=== PATIENT | male | born 1970 | race African-American/Black ===

== ENCOUNTER 2020-01-30 17:42 | Inpatient (IN) | payer OTHER ==
--- NOTE | 2020-01-30 18:37 | HP ---
COWS - Scale Resting Pulse: 0= [place] 80 or Below Sweatin= Chills/Flushing Restless Observation: 1= Difficult to Sit Still Pupil Size: 1= Pupils >than Normal Bone or Joint Aches: 2= Severe Diffuse Aches Runny Nose/ Eye Tearin= Runny Nose/Eyes GI Upset > 30mins: 2= Nausea/Diarrhea Tremor Observation: 1= Tremor [place], Not Seen Yawning Observation: 1= 1-2x During Session Anxiety or Irritability: 1=Feels Anxious/Irritable Goose Flesh Skin: 3=Piloerection COWS Score: 15 CIWA Score Nausea/Vomitin Muscle Tremors: 2 Anxiety: 1-Mildly Anxious Agitation: 0-Normal Activity Paroxysmal Sweats: 2 Orientation: 2-Disoriented Date<2 days Tacttile Disturbances: 1-Very Mild Itch/Numbness Auditory Disturbances: 1-Very Mild Visual Disturbances: 1-Very Mild Sensitivity Headache: 1-Very Mild CIWA-Ar Total Score: 13 - Admission Criteria OASAS Guidelines: Admission for Medically Managed Detox: Requires at least one of the followin. CIWA greater than 12 2. Seizures within the past 24 hours 3. Delirium tremens within the past 24 hours 4. Hallucinations within the past 24 hours 5. Acute intervention needed for co occurring medical disorder 6. Acute intervention needed for co occurring psychiatric disorder 7. Severe withdrawal that cannot be handled at a lower level of care (continued vomiting, continued diarrhea, abnormal vital signs) requiring intravenous medication and/or fluids 8. Admitting History and Physical - Smoking History Smoking history: Current every day smoker Have you smoked in the past 12 months: Yes Aproximately how many cigarettes per day: 2 Admission [facility] Chief Complaint: WITHDRAWAL SYMPTOMS Allergies/Adverse Reactions: Allergies Allergy/AdvReac Type Severity Reaction Status Date / Time No Known Allergies Allergy Verified 11/24/15 16:54 History of Present Illness: 49 Y.O. MAN WITH AN EXTENSIVE HISTORY OF ALCOHOL, COCAINE AND HEROIN DEPENDENCE IS HERE SEEKING DETOX SERVICES. HE REPORTS HIS LAST ADMISSION TO DETOX WAS 2 MONTHS AGO AT [facility] BUT HE LEFT A. LONGEST PERIOD OF ALCOHOL AND DRUG ABSTINENCE HAS BEEN 2 YEARS. Exam Limitations: No Limitations - Ebola screening Have you traveled outside of the country in the last 21 days: No Have you been sick,other than usual withdrawal symptoms: No - Review of Systems Constitutional: Chills, Loss of Appetite, Unintentional Wgt. Loss EENT: reports: Blurred Vision, Tearing, Nose Congestion Respiratory: reports: Cough Cardiac: reports: No Symptoms Reported GI: reports: Diarrhea, Poor Appetite, Abdominal cramping : reports: No Symptoms Reported Musculoskeletal: reports: Back Pain, Joint Pain Integumentary: reports: No Symptoms Reported Neuro: reports: Tingling (B/L UPE) Endocrine: reports: No Symptoms Reported Hematology: reports: No Symptoms Reported Psychiatric: reports: Mood/Affect Appropiate Other Systems: Reviewed and Negative Patient History - Patient Medical History Hx Anemia: No Hx Asthma: Yes Hx Chronic Obstructive Pulmonary Disease (COPD): No Hx Cancer: No Hx Cardiac Disorders: No Hx Congestive Heart Failure: No Hx Hypertension: Yes Hx Hypercholesterolemia: No Hx Pacemaker: No HX Cerebrovascular Accident: No Hx Seizures: No Hx Dementia: No Hx Diabetes: No Hx Gastrointestinal Disorders: No Hx Liver Disease: No Hx Genitourinary Disorders: No Hx Sexually Transmitted Disorders: No Hx Renal Disease (ESRD): No Hx Thyroid Disease: No Hx Human Immunodeficiency Virus (HIV): No (Negative-reports he was tested 1 week ago) Hx Hepatitis C: No Hx Depression: No (Denies ) Hx Suicide Attempt: No Hx Bipolar Disorder: No Hx Schizophrenia: No - Patient Surgical History Past Surgical History: Yes Hx Orthopedic Surgery: Yes (r internal fixation/hip replacement 2013) - PPD History Previous Implant?: Yes Documented Results: Negative w/proof Implanted On Prior [facility] Admission?: Yes Date: 11/26/15 Results: 0 PPD to be Administered?: Yes - Reproductive History Patient is a Female of Child Bearing Age (11 -55 yrs old): No - Smoking Cessation Smoking history: Current every day smoker Have you smoked in the past 12 months: Yes Aproximately how many cigarettes per day: 4 Hx Chewing Tobacco Use: No Initiated information on smoking cessation: Yes 'Breaking Loose' booklet given: 01/30/20 - Substance & Tx. History Hx Alcohol Use: Yes Hx Substance Use: Yes Substance Use Type: Alcohol, Cocaine, Heroin Hx Substance Use Treatment: Yes (Detox: 2 months ago at [facility] ) - Substances abused Heroin Substance route: Inhalation Frequency: Daily Amount used: 10 bags Age of first use: 29 Date of last use: 01/30/20 Cocaine Substance route: Smoking Frequency: 3-6 times per week Amount used: 3 bags Age of first use: 19 Date of last use: 01/30/20 Alcohol Substance route: Oral Frequency: Daily Amount used: 2-3 cans of beer Age of first use: 19 Date of last use: 01/30/20 Admission Physical Exam [facility] - Physical General Appearance: Yes: Tremorous, Sweating HEENTM: Yes: Hearing grossly Normal, Normocephalic, Normal Voice Respiratory: Yes: Chest Non-Tender, Lungs Clear, Normal Breath Sounds, No Respiratory Distress, No Accessory Muscle Use Neck: Yes: No masses,lesions,Nodules Breast: Yes: Breast Exam Deferred Cardiology: Yes: Regular Rhythm, Regular Rate Abdominal: Yes: Normal Bowel Sounds, Non Tender Genitourinary: Yes: Other (No complaints reported) Back: Yes: Normal Inspection Musculoskeletal: Yes: full range of Motion, Gait Steady Extremities: Yes: Normal Inspection, Normal Range of Motion, Non-Tender Neurological: Yes: Alert, Normal Mood/Affect, Normal Response Integumentary: Yes: Normal Color, Dry, Warm Lymphatic: Yes: Within Normal Limits - Diagnostic (1) Alcohol dependence with withdrawal, uncomplicated Current Visit: Yes Status: Chronic (2) Opioid dependence, uncomplicated Current Visit: Yes Status: Chronic (3) Asthma Current Visit: Yes Status: Chronic (4) Hypertension Current Visit: Yes Status: Chronic Qualifiers: Hypertension type: essential hypertension Qualified Code(s): I10 - Essential (primary) hypertension (5) Nicotine dependence Current Visit: Yes Status: Chronic Qualifiers: Nicotine product type: cigarettes Substance use status: uncomplicated Qualified Code(s): F17.210 - Nicotine dependence, cigarettes, uncomplicated (6) Cocaine dependence Current Visit: Yes Status: Chronic Cleared for Admission [facility] - Detox or Rehab [facility] Level of Care: Medically Managed Detox Regimen/Protocol: Methadone/Librium Claeared for Rehab Admission: No Breathalyzer - Breathalyzer Breathalyzer: 0.067 Urine Drug Screen - Test Device Lot number: [id number] Expiration date: 10/25/21 - Control Is test valid?: Yes - Results Drug screen NEGATIVE: No Urine drug screen results: KARLO-Cocaine, MOP-Opiates Inpatient Rehab Admission - Rehab Decision to Admit Inpatient rehab admission?: No
[2020-01-30] MEDS ORDERED: BISMUTH SUBSALICYLATE 524 MG/30 ML UD PO PRN (18:41)
[2020-01-30] MEDS ORDERED: MENTHOL/PHENOL 1 EACH UD MM PRN (18:41)
[2020-01-30] MEDS ORDERED: IBUPROFEN 400 MG TABLET (FP) PO PRN (18:41)
[2020-01-30] MEDS ORDERED: NICOTINE POLACRILEX 2 MG GUM BUC PRN (18:41)
[2020-01-30] MEDS ORDERED: MAGNESIUM HYDROX 2400MG/30ML ORAL SUSPENSION 30 ML CUP PO PRN (18:41)
[2020-01-30] MEDS ORDERED: chlordiazePOXIDE HCL 10 MG CAPSULE PO PRN (18:41)
[2020-01-30] MEDS ORDERED: MAGNESIUM CITRATE 300 ML BOTTLE PO PRN (18:41)
[2020-01-30] MEDS ORDERED: ACETAMINOPHEN 325 MG TABLET (FP) PO PRN (18:41)
[2020-01-30] MEDS ORDERED: MAG HYDROX/AL HYDROX/SIMETH 30 ML UNIT-DOSE CUP PO PRN (18:41)
[2020-01-30] MEDS ORDERED: ALBUTEROL SO4 8 GM HFA INHALER IH PRN (18:43)
[2020-01-30 18:59] VITALS: BMI 22.3
[2020-01-30] MEDS ORDERED: METHADONE HCL 10 MG TABLET (FOR DETOX USE ONLY) PO ONE (19:15)
[2020-01-30] MEDS ORDERED: ONDANSETRON *ODT* 4 MG TABLET SL ONE (19:15)
[2020-01-30] MEDS: amLODIPine BESYLATE 10 MG TABLET (FP) PO SCH (19:59)
[2020-01-30] MEDS: hydrOXYzine PAMOATE 25 MG CAPSULE (FP) PO SCH (22:10)
[2020-01-30] MEDS: MELATONIN 5 MG TABLETS PO SCH (22:10)
[2020-01-30] MEDS: chlordiazePOXIDE HCL 25 MG CAPSULE PO SCH (22:10)
[2020-01-30] MEDS: THIAMINE HCL 100 MG TABLET (FP) PO SCH (22:10)
[2020-01-31] MEDS: chlordiazePOXIDE HCL 25 MG CAPSULE PO SCH ×3 (06:28→23:10)
[2020-01-31] MEDS: hydrOXYzine PAMOATE 25 MG CAPSULE (FP) PO SCH ×5 (06:28→23:10)
[2020-01-31 09:17] LABS: HEMOGLOBIN 12.5 GM/dL (11.7-16.9); MCH 29.6 pg (25.7-33.7); MCHC 33.9 g/dl (32.0-35.9); MEAN CELL VOLUME 87.3 fl (80-96); MEAN PLT VOLUME 8.5 fl (7.5-11.1); PLATELET COUNT 248 K/MM3 (134-434); RBC 4.24 M/mm3 (4.00-5.60); RDW 14.8 % (11.9-15.9); WHITE BLOOD COUNT 2.9 K/mm3 (4.0-10.0)
[2020-01-31 09:21] LABS: ALBUMIN 3.2 g/dl (3.4-5.0); BILIRUBIN,TOTAL 0.5 mg/dL (0.2-1); BLOOD UREA NITROGEN 10.1 mg/dL (7-18); CALCIUM 8.4 mg/dL (8.5-10.1); POTASSIUM 3.7 mmol/L (3.5-5.1); TOT PROT 8.1 g/dl (6.4-8.2)
[2020-01-31] MEDS ORDERED: METHADONE HCL 5 MG TABLET (FOR DETOX USE ONLY) PO ONE (10:00)
--- NOTE | 2020-01-31 10:31 | EKG ---
Test Reason : Blood Pressure : / mmHG Vent. Rate : 070 BPM Atrial Rate : 070 BPM P-R Int : 172 ms QRS Dur : 092 ms QT Int : 404 ms P-R-T Axes : 072 074 071 degrees QTc Int : 436 ms NORMAL SINUS RHYTHM MODERATE VOLTAGE CRITERIA FOR LVH, MAY BE NORMAL VARIANT BORDERLINE ECG NO PREVIOUS ECGS AVAILABLE Confirmed by Jonathan Menon MD ([id number]) on 01/31/2020 10:30:59 AM Referred By: Jeff Guerrero Confirmed By:Jonathan Menon MD
[2020-01-31] MEDS: cloNIDine HCL 0.1 MG TABLET PO PRN ×4 (10:42→23:11)
[2020-01-31] MEDS: amLODIPine BESYLATE 10 MG TABLET (FP) PO SCH (10:42)
[2020-01-31] MEDS: PRENATAL VITAMINS W/ FOLIC ACID TABLET (FP) PO SCH (10:42)
[2020-01-31] MEDS: NICOTINE 14 MG/24 HOURS TOPICAL PATCH TD SCH (10:42)
--- NOTE | 2020-01-31 12:24 | PN ---
S CIWA - CIWA Score Nausea/Vomitin-No Nausea/No Vomiting Muscle Tremors: None Anxiety: 3 Agitation: 0-Normal Activity Paroxysmal Sweats: 3 Orientation: 0-Oriented Tacttile Disturbances: 0-None Auditory Disturbances: 0-None Visual Disturbances: 0-None Headache: 2-Mild CIWA-Ar Total Score: 8 BHS COWS - Scale Resting Pulse: 0= [place] 80 or Below Sweatin= Chills/Flushing Restless Observation: 1= Difficult to Sit Still Pupil Size: 0= Normal to Room Light Bone or Joint Aches: 2= Severe Diffuse Aches Runny Nose/ Eye Tearin= None GI Upset > 30mins: 0= None Tremor Observation of Outstretched Hands: 0= None Yawning Observation: 1= 1-2x During Session Anxiety or Irritability: 2=Irritable/Anxious Goose Flesh Skin: 0=Smooth Skin COWS Score: 7 S Progress Note (SOAP) Subjective: c/o anxiety, chills, muscle aches, and headache. Objective: 01/31/20 12:19 Vital Signs 01/31/20 01/31/20 01/31/20 06:34 08:00 09:06 Temperature 96.3 F L 98.8 F Pulse Rate 72 76 71 Respiratory 18 18 17 Rate Blood Pressure 187/121 H 176/99 H 181/107 H Laboratory Last Values WBC 2.9 K/mm3 (4.0-10.0) L 01/31/20 07:40 RBC 4.24 M/mm3 (4.00-5.60) 01/31/20 07:40 Hgb 12.5 GM/dL (11.7-16.9) 01/31/20 07:40 Hct 37.0 % (35.4-49) 01/31/20 07:40 MCV 87.3 fl (80-96) 01/31/20 07:40 MCH 29.6 pg (25.7-33.7) 01/31/20 07:40 MCHC 33.9 g/dl (32.0-35.9) 01/31/20 07:40 RDW 14.8 % (11.9-15.9) 01/31/20 07:40 Plt Count 248 K/MM3 (134-434) 01/31/20 07:40 MPV 8.5 fl (7.5-11.1) 01/31/20 07:40 Sodium 138 mmol/L (136-145) 01/31/20 07:40 Potassium 3.7 mmol/L (3.5-5.1) 01/31/20 07:40 Chloride 103 mmol/L (98-107) 01/31/20 07:40 Carbon Dioxide 27 mmol/L (21-32) 01/31/20 07:40 Anion Gap 8 MMOL/L (8-16) 01/31/20 07:40 BUN 10.1 mg/dL (7-18) 01/31/20 07:40 Creatinine 1.0 mg/dL (0.55-1.3) 01/31/20 07:40 Est GFR (CKD-EPI)AfAm 102.69 01/31/20 07:40 Est GFR (CKD-EPI)NonAf 88.61 01/31/20 07:40 Random Glucose 74 mg/dL (74-106) 01/31/20 07:40 Calcium 8.4 mg/dL (8.5-10.1) L 01/31/20 07:40 Total Bilirubin 0.5 mg/dL (0.2-1) 01/31/20 07:40 AST 16 U/L (15-37) 01/31/20 07:40 ALT 16 U/L (13-61) 01/31/20 07:40 Alkaline Phosphatase 105 U/L (45-117) 01/31/20 07:40 Total Protein 8.1 g/dl (6.4-8.2) 01/31/20 07:40 Albumin 3.2 g/dl (3.4-5.0) L 01/31/20 07:40 RPR Titer Nonreactive (NONREACTIVE) 01/31/20 07:40 Labs noted with low wbc 01/31/20 12:20 Assessment: 01/31/20 12:19 AOX3, in no acute respiratory distress. Full ROM, ambulating in the unit. Withdrawal symptoms. Leukopenia 01/31/20 12:24 Plan: continue detox. Repeat cbc with diff in AM.
[2020-01-31] MEDS: MELATONIN 5 MG TABLETS PO SCH (23:10)
[2020-01-31] MEDS: THIAMINE HCL 100 MG TABLET (FP) PO SCH (23:10)
[2020-02-01] MEDS: chlordiazePOXIDE 5 MG CAPSULE PO SCH ×3 (06:38→23:08)
[2020-02-01] MEDS: hydrOXYzine PAMOATE 25 MG CAPSULE (FP) PO SCH ×5 (06:38→23:08)
[2020-02-01] MEDS: ACETAMINOPHEN 325 MG TABLET (FP) PO PRN (06:39)
[2020-02-01] MEDS ORDERED: METHADONE HCL 10 MG TABLET (FOR DETOX USE ONLY) PO ONE (10:00)
[2020-02-01] MEDS: amLODIPine BESYLATE 10 MG TABLET (FP) PO SCH (10:53)
[2020-02-01] MEDS: PRENATAL VITAMINS W/ FOLIC ACID TABLET (FP) PO SCH (10:53)
[2020-02-01] MEDS: NICOTINE 14 MG/24 HOURS TOPICAL PATCH TD SCH (10:55)
[2020-02-01 11:33] LABS: BASO % 0.4 % (0-2.0); HEMATOCRIT 40.2 % (35.4-49); HEMOGLOBIN 13.5 GM/dL (11.7-16.9); LYMPH % 2.8 % (8-40); MCH 29.4 pg (25.7-33.7); MCHC 33.6 g/dl (32.0-35.9); MEAN CELL VOLUME 87.4 fl (80-96); MEAN PLT VOLUME 8.5 fl (7.5-11.1); MONO % 4.9 % (3.8-10.2); NEUT % 91.9 % (42.8-82.8); PLATELET COUNT 281 K/MM3 (134-434); RDW 15.6 % (11.9-15.9); WHITE BLOOD COUNT 14.1 K/mm3 (4.0-10.0)
[2020-02-01 12:13] LABS: ANISOCYTOSIS 1+; MACROCYTOSIS 0; OVALOCYTE 1+; PLATELET ESTIMATE NORMAL; TEAR DROP CELLS 1+
--- NOTE | 2020-02-01 13:48 | PN ---
S CIWA - CIWA Score Nausea/Vomitin-Mild Nausea/No Vomiting Muscle Tremors: 3 Anxiety: 2 Agitation: 1-Slight > Activity Paroxysmal Sweats: 2 Orientation: 0-Oriented Tacttile Disturbances: 1-Very Mild Itch/Numbness Auditory Disturbances: 0-None Visual Disturbances: 1-Very Mild Sensitivity Headache: 1-Very Mild CIWA-Ar Total Score: 12 S COWS - Scale Resting Pulse: 1= [place] 81-100 Sweatin= Chills/Flushing Restless Observation: 0= Sits Still Pupil Size: 1= Pupils >than Normal Bone or Joint Aches: 1= Mild Discomfort Runny Nose/ Eye Tearin= None GI Upset > 30mins: 2= Nausea/Diarrhea Tremor Observation of Outstretched Hands: 2= Slight Tremor Visible Yawning Observation: 0= None Anxiety or Irritability: 1=Feels Anxious/Irritable Goose Flesh Skin: 0=Smooth Skin COWS Score: 9 S Progress Note (SOAP) Subjective: 49 years old male admitted on 01/31/20 for alcohol and opiate withdrawal sx management treating with librium and methadone detox regiment low grade fever tylenal effective wbc elevation one dose of amoxicilline 500 mg po ensure tid Objective: 02/01/20 13:51 Vital Signs Temperature 98.3 F 02/01/20 12:53 Pulse Rate 81 02/01/20 12:53 Respiratory Rate 18 02/01/20 12:53 Blood Pressure 146/93 02/01/20 12:53 O2 Sat by Pulse Oximetry (%) Laboratory Last Values WBC 14.1 K/mm3 (4.0-10.0) H 02/01/20 07:50 RBC 4.60 M/mm3 (4.00-5.60) 02/01/20 07:50 Hgb 13.5 GM/dL (11.7-16.9) 02/01/20 07:50 Hct 40.2 % (35.4-49) 02/01/20 07:50 MCV 87.4 fl (80-96) 02/01/20 07:50 MCH 29.4 pg (25.7-33.7) 02/01/20 07:50 MCHC 33.6 g/dl (32.0-35.9) 02/01/20 07:50 RDW 15.6 % (11.9-15.9) 02/01/20 07:50 Plt Count 281 K/MM3 (134-434) 02/01/20 07:50 MPV 8.5 fl (7.5-11.1) 02/01/20 07:50 Absolute Neuts (auto) 12.9 K/mm3 (1.5-8.0) H 02/01/20 07:50 Neutrophils % 91.9 % (42.8-82.8) H 02/01/20 07:50 Neutrophils % (Manual) 86.9 % (42.8-82.8) H 02/01/20 07:50 Band Neutrophils % 4.0 % 02/01/20 07:50 Lymphocytes % 2.8 % (8-40) L 02/01/20 07:50 Lymphocytes % (Manual) 3.0 % (8-40) L 02/01/20 07:50 Monocytes % 4.9 % (3.8-10.2) 02/01/20 07:50 Monocytes % (Manual) 4 % (3.8-10.2) 02/01/20 07:50 Eosinophils % 0.0 % (0-4.5) 02/01/20 07:50 Eosinophils % (Manual) 0.0 % (0-4.5) 02/01/20 07:50 Basophils % 0.4 % (0-2.0) 02/01/20 07:50 Basophils % (Manual) 0.0 % (0-2.0) 02/01/20 07:50 Myelocytes % (Man) 0 % (0-2) 02/01/20 07:50 Promyelocytes % (Man) 0 % (0-2) 02/01/20 07:50 Blast Cells % (Manual) 0 % (0-0) 02/01/20 07:50 Nucleated RBC % 0 % (0-0) 02/01/20 07:50 Metamyelocytes 0 % (0-2) 02/01/20 07:50 Hypochromia 0 02/01/20 07:50 Platelet Estimate Normal 02/01/20 07:50 Platelet Comment Present 02/01/20 07:50 Polychromasia 0 02/01/20 07:50 Poikilocytosis 1+ 02/01/20 07:50 Anisocytosis 1+ 02/01/20 07:50 Microcytosis 1+ 02/01/20 07:50 Macrocytosis 0 02/01/20 07:50 Tear Drop Cells 1+ 02/01/20 07:50 Ovalocytes 1+ 02/01/20 07:50 Sodium 138 mmol/L (136-145) 01/31/20 07:40 Potassium 3.7 mmol/L (3.5-5.1) 01/31/20 07:40 Chloride 103 mmol/L (98-107) 01/31/20 07:40 Carbon Dioxide 27 mmol/L (21-32) 01/31/20 07:40 Anion Gap 8 MMOL/L (8-16) 01/31/20 07:40 BUN 10.1 mg/dL (7-18) 01/31/20 07:40 Creatinine 1.0 mg/dL (0.55-1.3) 01/31/20 07:40 Est GFR (CKD-EPI)AfAm 102.69 01/31/20 07:40 Est GFR (CKD-EPI)NonAf 88.61 01/31/20 07:40 Random Glucose 74 mg/dL (74-106) 01/31/20 07:40 Calcium 8.4 mg/dL (8.5-10.1) L 01/31/20 07:40 Total Bilirubin 0.5 mg/dL (0.2-1) 01/31/20 07:40 AST 16 U/L (15-37) 01/31/20 07:40 ALT 16 U/L (13-61) 01/31/20 07:40 Alkaline Phosphatase 105 U/L (45-117) 01/31/20 07:40 Total Protein 8.1 g/dl (6.4-8.2) 01/31/20 07:40 Albumin 3.2 g/dl (3.4-5.0) L 01/31/20 07:40 RPR Titer Nonreactive (NONREACTIVE) 01/31/20 07:40 lab noted 02/01/20 13:53 wbc elevation Assessment: 02/01/20 13:53 alcohol and opiate withdrawal Plan: librium and methadone regiment
[2020-02-01] MEDS ORDERED: AMOXICILLIN 500 MG CAPSULE (FP) PO ONE (14:15)
[2020-02-01] MEDS: LISINOPRIL 10 MG TABLET (FP) PO SCH ×2 (15:01→23:08)
[2020-02-01] MEDS: MELATONIN 5 MG TABLETS PO SCH (23:08)
[2020-02-01] MEDS: THIAMINE HCL 100 MG TABLET (FP) PO SCH (23:08)
[2020-02-01] MEDS: METHOCARBAMOL 500 MG TABLET PO PRN (23:09)
[2020-02-02] MEDS ORDERED: chlordiazePOXIDE HCL 10 MG CAPSULE PO PRN
[2020-02-02] MEDS: chlordiazePOXIDE HCL 10 MG CAPSULE PO SCH ×3 (05:38→22:30)
[2020-02-02] MEDS: hydrOXYzine PAMOATE 25 MG CAPSULE (FP) PO SCH ×5 (05:38→22:31)
[2020-02-02] MEDS ORDERED: METHADONE HCL 5 MG TABLET (FOR DETOX USE ONLY) PO ONE (06:00)
[2020-02-02] MEDS: amLODIPine BESYLATE 10 MG TABLET (FP) PO SCH (10:23)
[2020-02-02] MEDS: PRENATAL VITAMINS W/ FOLIC ACID TABLET (FP) PO SCH (10:23)
[2020-02-02] MEDS: NICOTINE 14 MG/24 HOURS TOPICAL PATCH TD SCH (10:23)
[2020-02-02] MEDS: LISINOPRIL 10 MG TABLET (FP) PO SCH ×2 (10:23→22:31)
--- NOTE | 2020-02-02 10:54 | PN ---
S CIWA - CIWA Score Nausea/Vomitin Muscle Tremors: 1-None Visible, but [place] Anxiety: 1-Mildly Anxious Agitation: 0-Normal Activity Paroxysmal Sweats: 1-Minimal Palms Moist Orientation: 0-Oriented Tacttile Disturbances: 0-None Auditory Disturbances: 0-None Visual Disturbances: 2-Mild Sensitivity Headache: 0-None Present CIWA-Ar Total Score: 8 BHS COWS - Scale Resting Pulse: 0= [place] 80 or Below Sweatin= Chills/Flushing Restless Observation: 0= Sits Still Pupil Size: 0= Normal to Room Light Bone or Joint Aches: 1= Mild Discomfort Runny Nose/ Eye Tearin= Nasal Congestion GI Upset > 30mins: 3= Vomiting/Diarrhea Tremor Observation of Outstretched Hands: 1= Tremor [place], Not Seen Yawning Observation: 0= None Anxiety or Irritability: 1=Feels Anxious/Irritable Goose Flesh Skin: 0=Smooth Skin COWS Score: 8 S Progress Note (SOAP) Subjective: 49 years old male admitted on 01/31/20 for alcohol and opiate withdrawal treating with librium and methadone detox regiment feeling nausea vomited x 1 tigan 200 mg IM x 1 encourage ensure Objective: 02/02/20 10:57 Vital Signs Temperature 98.4 F 02/02/20 09:20 Pulse Rate 80 02/02/20 09:20 Respiratory Rate 18 02/02/20 09:20 Blood Pressure 138/92 02/02/20 09:20 O2 Sat by Pulse Oximetry (%) Laboratory Last Values WBC 14.1 K/mm3 (4.0-10.0) H 02/01/20 07:50 RBC 4.60 M/mm3 (4.00-5.60) 02/01/20 07:50 Hgb 13.5 GM/dL (11.7-16.9) 02/01/20 07:50 Hct 40.2 % (35.4-49) 02/01/20 07:50 MCV 87.4 fl (80-96) 02/01/20 07:50 MCH 29.4 pg (25.7-33.7) 02/01/20 07:50 MCHC 33.6 g/dl (32.0-35.9) 02/01/20 07:50 RDW 15.6 % (11.9-15.9) 02/01/20 07:50 Plt Count 281 K/MM3 (134-434) 02/01/20 07:50 MPV 8.5 fl (7.5-11.1) 02/01/20 07:50 Absolute Neuts (auto) 12.9 K/mm3 (1.5-8.0) H 02/01/20 07:50 Neutrophils % 91.9 % (42.8-82.8) H 02/01/20 07:50 Neutrophils % (Manual) 86.9 % (42.8-82.8) H 02/01/20 07:50 Band Neutrophils % 4.0 % 02/01/20 07:50 Lymphocytes % 2.8 % (8-40) L 02/01/20 07:50 Lymphocytes % (Manual) 3.0 % (8-40) L 02/01/20 07:50 Monocytes % 4.9 % (3.8-10.2) 02/01/20 07:50 Monocytes % (Manual) 4 % (3.8-10.2) 02/01/20 07:50 Eosinophils % 0.0 % (0-4.5) 02/01/20 07:50 Eosinophils % (Manual) 0.0 % (0-4.5) 02/01/20 07:50 Basophils % 0.4 % (0-2.0) 02/01/20 07:50 Basophils % (Manual) 0.0 % (0-2.0) 02/01/20 07:50 Myelocytes % (Man) 0 % (0-2) 02/01/20 07:50 Promyelocytes % (Man) 0 % (0-2) 02/01/20 07:50 Blast Cells % (Manual) 0 % (0-0) 02/01/20 07:50 Nucleated RBC % 0 % (0-0) 02/01/20 07:50 Metamyelocytes 0 % (0-2) 02/01/20 07:50 Hypochromia 0 02/01/20 07:50 Platelet Estimate Normal 02/01/20 07:50 Platelet Comment Present 02/01/20 07:50 Polychromasia 0 02/01/20 07:50 Poikilocytosis 1+ 02/01/20 07:50 Anisocytosis 1+ 02/01/20 07:50 Microcytosis 1+ 02/01/20 07:50 Macrocytosis 0 02/01/20 07:50 Tear Drop Cells 1+ 02/01/20 07:50 Ovalocytes 1+ 02/01/20 07:50 Sodium 138 mmol/L (136-145) 01/31/20 07:40 Potassium 3.7 mmol/L (3.5-5.1) 01/31/20 07:40 Chloride 103 mmol/L (98-107) 01/31/20 07:40 Carbon Dioxide 27 mmol/L (21-32) 01/31/20 07:40 Anion Gap 8 MMOL/L (8-16) 01/31/20 07:40 BUN 10.1 mg/dL (7-18) 01/31/20 07:40 Creatinine 1.0 mg/dL (0.55-1.3) 01/31/20 07:40 Est GFR (CKD-EPI)AfAm 102.69 01/31/20 07:40 Est GFR (CKD-EPI)NonAf 88.61 01/31/20 07:40 Random Glucose 74 mg/dL (74-106) 01/31/20 07:40 Calcium 8.4 mg/dL (8.5-10.1) L 01/31/20 07:40 Total Bilirubin 0.5 mg/dL (0.2-1) 01/31/20 07:40 AST 16 U/L (15-37) 01/31/20 07:40 ALT 16 U/L (13-61) 01/31/20 07:40 Alkaline Phosphatase 105 U/L (45-117) 01/31/20 07:40 Total Protein 8.1 g/dl (6.4-8.2) 01/31/20 07:40 Albumin 3.2 g/dl (3.4-5.0) L 01/31/20 07:40 RPR Titer Nonreactive (NONREACTIVE) 01/31/20 07:40 lab noted Assessment: 02/02/20 11:01 alcohol and opiate withdrawal 02/02/20 11:01 vomiting Plan: librium and methadone regiments tigan 200 mg IM
[2020-02-02] MEDS ORDERED: TRIMETHOBENZAMIDE HCL 200MG/2ML INJ IM ONE (11:30)
[2020-02-02] MEDS: METHOCARBAMOL 500 MG TABLET PO PRN (18:53)
[2020-02-02] MEDS: MELATONIN 5 MG TABLETS PO SCH (22:30)
[2020-02-02] MEDS: ACETAMINOPHEN 325 MG TABLET (FP) PO PRN (22:31)
[2020-02-02] MEDS: THIAMINE HCL 100 MG TABLET (FP) PO SCH (23:39)
[2020-02-03] MEDS ORDERED: chlordiazePOXIDE HCL 10 MG CAPSULE PO ONE (05:00)
[2020-02-03] MEDS: hydrOXYzine PAMOATE 25 MG CAPSULE (FP) PO SCH ×2 (06:42→10:01)
[2020-02-03 09:11] VITALS: BP 135/81; PULSE 90; TEMP 98.7
[2020-02-03] MEDS: LISINOPRIL 10 MG TABLET (FP) PO SCH (10:00)
[2020-02-03] MEDS: PRENATAL VITAMINS W/ FOLIC ACID TABLET (FP) PO SCH (10:00)
[2020-02-03] MEDS: amLODIPine BESYLATE 10 MG TABLET (FP) PO SCH (10:00)
[2020-02-03] MEDS: NICOTINE 14 MG/24 HOURS TOPICAL PATCH TD SCH (10:01)
--- NOTE | 2020-02-03 12:30 | DS ---
[facility] Detox Discharge Summary Admission Date: 01/30/20 Discharge Date: 02/03/20 - History Present History: Alcohol Dependence, Opioid Dependence Additional Comments: 49 years old male admitted on 01/31/20 for alcohol and opiate withdrawal sx management treating with librium and methadone detox regiments Mr Mejias has completed the librium and methadone regiments and is tolerated well cardiac s1s2 regular rate rhythm respiratory clear lungs bilaterally on auscultation abdomen soft no rebound tenderness extremities full range of motion Pertinent Past History: time for discharge 33 minutes patient prefers to stay in detox continue methadone encourage the patient transfers to rehab and possible medication assisted treatment program Mr Mejias hesitates that going to methadone program daily is not suitable for hime consider suboxone with weekly to monthly supply Mr Mejias agrees to consider patient [facility] admission - Physical Exam Results Vital Signs: Vital Signs Temperature 98.7 F 02/03/20 08:35 Pulse Rate 90 02/03/20 08:35 Respiratory Rate 18 02/03/20 08:35 Blood Pressure 135/81 02/03/20 08:35 O2 Sat by Pulse Oximetry (%) Pertinent Admission Physical Exam Findings: alcohol and methadone withdrawal Laboratory Last Values WBC 14.1 K/mm3 (4.0-10.0) H 02/01/20 07:50 RBC 4.60 M/mm3 (4.00-5.60) 02/01/20 07:50 Hgb 13.5 GM/dL (11.7-16.9) 02/01/20 07:50 Hct 40.2 % (35.4-49) 02/01/20 07:50 MCV 87.4 fl (80-96) 02/01/20 07:50 MCH 29.4 pg (25.7-33.7) 02/01/20 07:50 MCHC 33.6 g/dl (32.0-35.9) 02/01/20 07:50 RDW 15.6 % (11.9-15.9) 02/01/20 07:50 Plt Count 281 K/MM3 (134-434) 02/01/20 07:50 MPV 8.5 fl (7.5-11.1) 02/01/20 07:50 Absolute Neuts (auto) 12.9 K/mm3 (1.5-8.0) H 02/01/20 07:50 Neutrophils % 91.9 % (42.8-82.8) H 02/01/20 07:50 Neutrophils % (Manual) 86.9 % (42.8-82.8) H 02/01/20 07:50 Band Neutrophils % 4.0 % 02/01/20 07:50 Lymphocytes % 2.8 % (8-40) L 02/01/20 07:50 Lymphocytes % (Manual) 3.0 % (8-40) L 02/01/20 07:50 Monocytes % 4.9 % (3.8-10.2) 02/01/20 07:50 Monocytes % (Manual) 4 % (3.8-10.2) 02/01/20 07:50 Eosinophils % 0.0 % (0-4.5) 02/01/20 07:50 Eosinophils % (Manual) 0.0 % (0-4.5) 02/01/20 07:50 Basophils % 0.4 % (0-2.0) 02/01/20 07:50 Basophils % (Manual) 0.0 % (0-2.0) 02/01/20 07:50 Myelocytes % (Man) 0 % (0-2) 02/01/20 07:50 Promyelocytes % (Man) 0 % (0-2) 02/01/20 07:50 Blast Cells % (Manual) 0 % (0-0) 02/01/20 07:50 Nucleated RBC % 0 % (0-0) 02/01/20 07:50 Metamyelocytes 0 % (0-2) 02/01/20 07:50 Hypochromia 0 02/01/20 07:50 Platelet Estimate Normal 02/01/20 07:50 Platelet Comment Present 02/01/20 07:50 Polychromasia 0 02/01/20 07:50 Poikilocytosis 1+ 02/01/20 07:50 Anisocytosis 1+ 02/01/20 07:50 Microcytosis 1+ 02/01/20 07:50 Macrocytosis 0 02/01/20 07:50 Tear Drop Cells 1+ 02/01/20 07:50 Ovalocytes 1+ 02/01/20 07:50 Sodium 138 mmol/L (136-145) 01/31/20 07:40 Potassium 3.7 mmol/L (3.5-5.1) 01/31/20 07:40 Chloride 103 mmol/L (98-107) 01/31/20 07:40 Carbon Dioxide 27 mmol/L (21-32) 01/31/20 07:40 Anion Gap 8 MMOL/L (8-16) 01/31/20 07:40 BUN 10.1 mg/dL (7-18) 01/31/20 07:40 Creatinine 1.0 mg/dL (0.55-1.3) 01/31/20 07:40 Est GFR (CKD-EPI)AfAm 102.69 01/31/20 07:40 Est GFR (CKD-EPI)NonAf 88.61 01/31/20 07:40 Random Glucose 74 mg/dL (74-106) 01/31/20 07:40 Calcium 8.4 mg/dL (8.5-10.1) L 01/31/20 07:40 Total Bilirubin 0.5 mg/dL (0.2-1) 01/31/20 07:40 AST 16 U/L (15-37) 01/31/20 07:40 ALT 16 U/L (13-61) 01/31/20 07:40 Alkaline Phosphatase 105 U/L (45-117) 01/31/20 07:40 Total Protein 8.1 g/dl (6.4-8.2) 01/31/20 07:40 Albumin 3.2 g/dl (3.4-5.0) L 01/31/20 07:40 RPR Titer Nonreactive (NONREACTIVE) 01/31/20 07:40 Vital Signs Temperature 98.7 F 02/03/20 08:35 Pulse Rate 90 02/03/20 08:35 Respiratory Rate 18 02/03/20 08:35 Blood Pressure 135/81 02/03/20 08:35 O2 Sat by Pulse Oximetry (%) lab noted - Treatment Hospital Course: Detox Protocol Followed, Detoxed Safely, Responded well, Discharged Condition Good, Rehab Referral Accepted Patient has Accepted a [facility] Referral to: [facility] - Medication Discharge Medications: Ambulatory Orders Albuterol Sulfate Inhaler - [Ventolin HFA Inhaler -] 2 inh PO Q4H PRN 11/24/15 Amlodipine Besylate [Norvasc -] 10 mg PO DAILY 01/30/20 - Diagnosis (1) Substance induced mood disorder Status: Suspected (2) Alcohol dependence with withdrawal, uncomplicated Status: Acute (3) Asthma Status: Chronic Qualifiers: Asthma severity: mild Asthma persistence: intermittent Asthma complication type: with status asthmaticus Qualified Code(s): J45.22 - Mild intermittent asthma with status asthmaticus (4) Hypertension Status: Chronic Qualifiers: Hypertension type: essential hypertension Qualified Code(s): I10 - E ssential (primary) hypertension (5) Nicotine dependence Status: Chronic Qualifiers: Nicotine product type: cigarettes Substance use status: in withdrawal Qualified Code(s): F17.213 - Nicotine dependence, cigarettes, with withdrawal (6) Opioid dependence, uncomplicated Status: Acute - AMA Did Patient Leave Against Medical Advice: No CIWA Score - CIWA Score Nausea/Vomitin-No Nausea/No Vomiting Muscle Tremors: 1-None Visible, but [place] Anxiety: 1-Mildly Anxious Agitation: 0-Normal Activity Paroxysmal Sweats: No Perspiration Orientation: 0-Oriented Tacttile Disturbances: 0-None Auditory Disturbances: 0-None Visual Disturbances: 1-Very Mild Sensitivity Headache: 1-Very Mild CIWA-Ar Total Score: 4 COWS (PN) - Opiate Withdrawal Resting Pulse: 1= [place] 81-100 Sweatin= No chills or Flushing Restless Observation: 0= Sits Still Pupil Size: 0= Normal to Room Light Bone or Joint Aches: 1= Mild Discomfort Runny Nose/ Eye Tearin= None GI Upset > 30mins: 0= None Tremor Observation of Outstretched Hands: 1= Tremor [place], Not Seen Yawning Observation: 1= 1-2x During Session Anxiety or Irritability: 0= None Goose Flesh Skin: 0=Smooth Skin COWS Score: 4
== END 2020-02-03 10:50 | disposition home or self-care (01) | DRG 773 ==
LOC: YASAS 17:42 → Y3N 19:09
PROVIDERS: ADMIT Allergy & Immunology; ATTEND Allergy & Immunology
PROC: HZ2ZZZZ Detoxification Services for Substance Abuse Treatment (ICD-10-PCS; principal; 2020-01-30)
DX: F10.230 Alcohol dependence with withdrawal, uncomplicated (principal); F11.20 Opioid dependence, uncomplicated; F14.20 Cocaine dependence, uncomplicated; F17.210 Nicotine dependence, cigarettes, uncomplicated; F19.24 Other psychoactive substance dependence with psychoactive substance-induced mood disorder; I10 Essential (primary) hypertension; J45.22 Mild intermittent asthma with status asthmaticus; D72.819 Decreased white blood cell count, unspecified; Z96.641 Presence of right artificial hip joint
CPT/HCPCS: 36415; 80053; 85025; 85027; 86593; 93005; 93010; J0735; Q0162

== ENCOUNTER 2021-01-20 08:34 | Inpatient (IN) | payer OTHER ==
[2021-01-20 09:16] VITALS: BMI 21.7
[2021-01-20] MEDS ORDERED: MAG HYDROX/AL HYDROX/SIMETH 30 ML UNIT-DOSE CUP PO PRN (09:42)
[2021-01-20] MEDS ORDERED: chlordiazePOXIDE HCL 25 MG CAPSULE PO PRN (09:42)
[2021-01-20] MEDS ORDERED: MAGNESIUM HYDROX 2400MG/30ML ORAL SUSPENSION 30 ML CUP PO PRN (09:42)
[2021-01-20] MEDS ORDERED: IBUPROFEN 400 MG TABLET (FP) PO PRN (09:42)
[2021-01-20] MEDS ORDERED: BISMUTH SUBSALICYLATE 262 MG/15 ML BTL PO PRN (09:42)
[2021-01-20] MEDS ORDERED: NICOTINE POLACRILEX 2 MG GUM BUC PRN (09:42)
[2021-01-20] MEDS ORDERED: ONDANSETRON *ODT* 4 MG TABLET SL PRN (09:42)
[2021-01-20] MEDS ORDERED: ACETAMINOPHEN 325 MG TABLET (FP) PO PRN ×2 (09:42)
[2021-01-20] MEDS ORDERED: MAGNESIUM CITRATE 300 ML BOTTLE PO PRN (09:42)
[2021-01-20] MEDS ORDERED: MENTHOL/PHENOL 1 EACH UD MM PRN (09:42)
[2021-01-20] MEDS ORDERED: METHADONE HCL 10 MG TABLET (FOR DETOX USE ONLY) PO ONE (09:42)
[2021-01-20] MEDS ORDERED: ALBUTEROL SO4 HFA INHALER IH PRN (09:48)
[2021-01-20] MEDS ORDERED: amLODIPine BESYLATE 10 MG TABLET (FP) PO SCH (10:00)
[2021-01-20] MEDS: chlordiazePOXIDE HCL 25 MG CAPSULE PO SCH ×3 (11:39→22:33)
[2021-01-20] MEDS: PRENATAL VITAMINS W/ FOLIC ACID TABLET (FP) PO SCH (11:40)
[2021-01-20] MEDS: hydrOXYzine PAMOATE 25 MG CAPSULE (FP) PO SCH ×4 (11:47→22:33)
[2021-01-20 13:50] LABS: HEMATOCRIT 32.2 % (35.4-49); HEMOGLOBIN 10.7 GM/dL (11.7-16.9); MCH 29.5 pg (25.7-33.7); MCHC 33.2 g/dl (32.0-35.9); MEAN CELL VOLUME 88.9 fl (80-96); MEAN PLT VOLUME 8.4 fl (7.5-11.1); PLATELET COUNT 216 K/MM3 (134-434); RBC 3.62 M/mm3 (4.00-5.60); RDW 14.3 % (11.9-15.9); WHITE BLOOD COUNT 3.6 K/mm3 (4.0-10.0)
[2021-01-20 13:51] LABS: POTASSIUM 4.2 mmol/L (3.5-5.1)
[2021-01-20 13:55] LABS: ALBUMIN 3.1 g/dl (3.4-5.0)
[2021-01-20 13:56] LABS: CALCIUM 8.7 mg/dL (8.5-10.1)
[2021-01-20 13:59] LABS: CREATININE 1.5 mg/dL (0.55-1.3)
[2021-01-20 14:01] LABS: TOT PROT 7.6 g/dl (6.4-8.2)
[2021-01-20 14:43] LABS: BILIRUBIN,TOTAL 0.3 mg/dL (0.2-1)
[2021-01-20] MEDS: METHOCARBAMOL 500 MG TABLET PO PRN (16:58)
[2021-01-20] MEDS: cloNIDine HCL 0.1 MG TABLET PO PRN ×2 (16:58→22:56)
[2021-01-20] MEDS: THIAMINE HCL 100 MG TABLET (FP) PO SCH (22:33)
[2021-01-20] MEDS: MELATONIN 5 MG TABLETS PO SCH (22:33)
[2021-01-21] MEDS: METHOCARBAMOL 500 MG TABLET PO PRN (06:16)
[2021-01-21] MEDS: cloNIDine HCL 0.1 MG TABLET PO PRN ×2 (06:16→22:39)
[2021-01-21] MEDS: hydrOXYzine PAMOATE 25 MG CAPSULE (FP) PO SCH ×5 (06:16→22:38)
[2021-01-21] MEDS: chlordiazePOXIDE HCL 25 MG CAPSULE PO SCH ×4 (06:17→22:47)
[2021-01-21] MEDS ORDERED: amLODIPine BESYLATE 10 MG TABLET (FP) PO SCH (08:53)
[2021-01-21] MEDS ORDERED: METHADONE HCL 5 MG TABLET (FOR DETOX USE ONLY) ONE (09:05)
[2021-01-21] MEDS ORDERED: METHADONE HCL 10 MG TABLET (FOR DETOX USE ONLY) ONE (09:05)
[2021-01-21] MEDS ORDERED: METHADONE (DETOX) 20 MG, METHADONE (DETOX) 5 MG PO ONE (10:00)
[2021-01-21] MEDS: amLODIPine BESYLATE 10 MG TABLET (FP) PO SCH (15:43)
[2021-01-21] MEDS: LISINOPRIL 5 MG TABLET PO SCH (15:43)
[2021-01-21] MEDS: PRENATAL VITAMINS W/ FOLIC ACID TABLET (FP) PO SCH (15:43)
[2021-01-21] MEDS: MELATONIN 5 MG TABLETS PO SCH (22:38)
[2021-01-21] MEDS: THIAMINE HCL 100 MG TABLET (FP) PO SCH (22:38)
[2021-01-22] MEDS: cloNIDine HCL 0.1 MG TABLET PO PRN (06:48)
[2021-01-22] MEDS: hydrOXYzine PAMOATE 25 MG CAPSULE (FP) PO SCH ×5 (06:56→22:48)
[2021-01-22] MEDS: chlordiazePOXIDE HCL 25 MG CAPSULE PO SCH ×4 (06:57→22:48)
[2021-01-22] MEDS ORDERED: METHADONE HCL 10 MG TABLET (FOR DETOX USE ONLY) PO ONE (10:00)
[2021-01-22] MEDS: LISINOPRIL 5 MG TABLET PO SCH (11:11)
[2021-01-22] MEDS: PRENATAL VITAMINS W/ FOLIC ACID TABLET (FP) PO SCH (11:11)
[2021-01-22] MEDS: amLODIPine BESYLATE 10 MG TABLET (FP) PO SCH (11:13)
[2021-01-22 11:28] LABS: BASO % 0.8 % (0-2.0); EOS % 2.1 % (0-4.5); HEMATOCRIT 35.5 % (35.4-49); MCH 29.6 pg (25.7-33.7); MCHC 33.8 g/dl (32.0-35.9); MEAN CELL VOLUME 87.4 fl (80-96); MEAN PLT VOLUME 8.8 fl (7.5-11.1); MONO % 16.1 % (3.8-10.2); PLATELET COUNT 272 K/MM3 (134-434); RBC 4.06 M/mm3 (4.00-5.60); RDW 14.7 % (11.9-15.9); WHITE BLOOD COUNT 3.1 K/mm3 (4.0-10.0)
[2021-01-22] MEDS ORDERED: cloNIDine HCL 0.1 MG TABLET PO ONE (12:30)
[2021-01-22] MEDS: THIAMINE HCL 100 MG TABLET (FP) PO SCH (22:48)
[2021-01-22] MEDS: MELATONIN 5 MG TABLETS PO SCH (22:48)
[2021-01-22] MEDS: METHOCARBAMOL 500 MG TABLET PO PRN (22:49)
[2021-01-23] MEDS ORDERED: chlordiazePOXIDE HCL 10 MG CAPSULE PO PRN
[2021-01-23] MEDS: hydrOXYzine PAMOATE 25 MG CAPSULE (FP) PO SCH ×5 (06:29→20:59)
[2021-01-23] MEDS: chlordiazePOXIDE HCL 10 MG CAPSULE PO SCH ×4 (06:29→22:36)
[2021-01-23] MEDS ORDERED: METHADONE HCL 10 MG TABLET (FOR DETOX USE ONLY) ONE (09:31)
[2021-01-23] MEDS ORDERED: METHADONE HCL 5 MG TABLET (FOR DETOX USE ONLY) ONE (09:32)
[2021-01-23] MEDS: LISINOPRIL 5 MG TABLET PO SCH (09:48)
[2021-01-23] MEDS: amLODIPine BESYLATE 10 MG TABLET (FP) PO SCH (09:48)
[2021-01-23] MEDS: PRENATAL VITAMINS W/ FOLIC ACID TABLET (FP) PO SCH (09:51)
[2021-01-23] MEDS ORDERED: METHADONE (DETOX) 10 MG, METHADONE (DETOX) 5 MG PO ONE (10:00)
[2021-01-23 11:18] LABS: HEMOGLOBIN 11.7 GM/dL (11.7-16.9); MCH 29.2 pg (25.7-33.7); MCHC 33.5 g/dl (32.0-35.9); MEAN CELL VOLUME 87.2 fl (80-96); MEAN PLT VOLUME 8.2 fl (7.5-11.1); PLATELET COUNT 278 K/MM3 (134-434); RBC 4.01 M/mm3 (4.00-5.60); RDW 14.4 % (11.9-15.9)
[2021-01-23 11:23] LABS: BLOOD UREA NITROGEN 28.3 mg/dL (7-18); CALCIUM 8.8 mg/dL (8.5-10.1)
[2021-01-23] MEDS: THIAMINE HCL 100 MG TABLET (FP) PO SCH (20:59)
[2021-01-23] MEDS: MELATONIN 5 MG TABLETS PO SCH (20:59)
[2021-01-23] MEDS: METHOCARBAMOL 500 MG TABLET PO PRN (21:00)
[2021-01-24] MEDS ORDERED: chlordiazePOXIDE HCL 10 MG CAPSULE PO SCH (05:00)
[2021-01-24] MEDS: hydrOXYzine PAMOATE 25 MG CAPSULE (FP) PO SCH (05:09)
[2021-01-24 08:52] VITALS: BP 129/82; PULSE 89; TEMP 97.3
[2021-01-24] MEDS: amLODIPine BESYLATE 10 MG TABLET (FP) PO SCH (09:14)
[2021-01-24] MEDS ORDERED: METHADONE HCL 10 MG TABLET (FOR DETOX USE ONLY) PO ONE (10:00)
[2021-01-24 12:12] LABS: POTASSIUM 4.1 mmol/L (3.5-5.1)
[2021-01-24 12:20] LABS: BLOOD UREA NITROGEN 37.9 mg/dL (7-18)
[2021-01-24 12:22] LABS: CREATININE 2.3 mg/dL (0.55-1.3)
[2021-01-25] MEDS ORDERED: chlordiazePOXIDE HCL 10 MG CAPSULE PO ONE (05:00)
[2021-01-25] MEDS ORDERED: METHADONE HCL 5 MG TABLET (FOR DETOX USE ONLY) PO ONE (06:00)
== END 2021-01-24 09:25 | disposition other institution (70) | DRG 773 ==
LOC: YASAS 08:34 → Y3N 09:35
PROVIDERS: ADMIT Allergy & Immunology; ATTEND Allergy & Immunology
PROC: HZ2ZZZZ Detoxification Services for Substance Abuse Treatment (ICD-10-PCS; principal; 2021-01-20)
DX: F11.23 Opioid dependence with withdrawal (principal); F10.230 Alcohol dependence with withdrawal, uncomplicated; F14.20 Cocaine dependence, uncomplicated; F17.210 Nicotine dependence, cigarettes, uncomplicated; F19.24 Other psychoactive substance dependence with psychoactive substance-induced mood disorder; F32.9 Major depressive disorder, single episode, unspecified; D72.819 Decreased white blood cell count, unspecified; I10 Essential (primary) hypertension; J45.909 Unspecified asthma, uncomplicated; N17.9 Acute kidney failure, unspecified; D64.9 Anemia, unspecified; Z96.651 Presence of right artificial knee joint; Z96.641 Presence of right artificial hip joint; Z59.0 Homelessness
CPT/HCPCS: 36415; 80048; 80053; 85025; 85027; 86780; C9803; J0735; U0003

== ENCOUNTER 2024-01-11 14:07 | Inpatient (IN) | payer OTHER ==
[2024-01-11 17:45] VITALS: BMI 21.7
[2024-01-11] MEDS ORDERED: guaiFENesin 600 MG TABLET.ER (FP) PO PRN (18:45)
[2024-01-11] MEDS ORDERED: NICOTINE POLACRILEX 2 MG GUM BUC PRN (18:45)
[2024-01-11] MEDS ORDERED: BENZONATATE 200 MG CAPSULE PO PRN (18:45)
[2024-01-11] MEDS ORDERED: NALOXONE HCL (KLOXXADO) 8 MG SPRAY NS PRN (18:45)
[2024-01-11] MEDS ORDERED: MAGNESIUM HYDROX 2400MG/30ML ORAL SUSPENSION 30 ML CUP PO PRN (18:45)
[2024-01-11] MEDS ORDERED: LOPERAMIDE HCL 2 MG CAPSULE PO PRN (18:45)
[2024-01-11] MEDS ORDERED: POLYETHYLENE GLYCOL (HEALTHYLAX) 3350 17 GM PACKET PO PRN (18:45)
[2024-01-11] MEDS ORDERED: NALOXONE HCL 0.4 MG/ML VIAL IM PRN (18:45)
[2024-01-11] MEDS ORDERED: BENZOCAINE/MENTHOL (CHLORASEPTIC ) LOZENGE MM PRN (18:45)
[2024-01-11] MEDS ORDERED: TUBERCULIN PPD 5 TU/0.1ML SYRINGE (IN PATIENT USE ONLY) ID ONE (22:46)
[2024-01-11] MEDS: MELATONIN 5 MG TABLETS PO SCH (23:58)
[2024-01-11] MEDS: THIAMINE HCL 100 MG TABLET (FP) PO SCH (23:58)
[2024-01-12] MEDS: cloNIDine HCL 0.1 MG TABLET PO ONE (00:26)
[2024-01-12] MEDS: TRIMETHOBENZAMIDE HCL 200MG/2ML INJ IM ONE (00:58)
[2024-01-12] MEDS: IBUPROFEN 400 MG TABLET (FP) PO PRN (07:36)
[2024-01-12] MEDS: hydrOXYzine PAMOATE 25 MG CAPSULE (FP) PO PRN (07:37)
[2024-01-12] MEDS: PRENATAL VITAMINS W/ FOLIC ACID TABLET (FP) PO SCH (10:12)
[2024-01-12] MEDS: TUBERCULIN PPD 5 TU/0.1ML SYRINGE (IN PATIENT USE ONLY) ID ONE (10:12)
[2024-01-12] MEDS: methaDONE HCL 40 MG DISPERSABLE TABLET PO SCH (11:31)
[2024-01-12] MEDS: amLODIPine BESYLATE 10 MG TABLET (FP) PO SCH (11:31)
[2024-01-12 11:58] LABS: CHLORIDE 106 mmol/L (98-107); POTASSIUM 4.1 mmol/L (3.5-5.1); SODIUM 138 mmol/L (136-145)
[2024-01-12 12:01] LABS: HEMATOCRIT 30.1 % (35.4-49); HEMOGLOBIN 10.4 GM/dL (11.7-16.9); MCH 30.7 pg (25.7-33.7); MCHC 34.6 g/dl (32.0-35.9); MEAN CELL VOLUME 88.8 fl (80-96); MEAN PLT VOLUME 9.2 fl (7.5-11.1); PLATELET COUNT 186 10^3/uL (134-434); RBC 3.39 M/mm3 (4.00-5.60); RDW 14.8 % (11.9-15.9); WHITE BLOOD COUNT 3.7 K/mm3 (4.0-10.0)
[2024-01-12 12:12] LABS: CALCIUM 8.9 mg/dL (8.5-10.1)
[2024-01-12 12:13] LABS: ANION GAP 9 mmol/L (4-13); BLOOD UREA NITROGEN 20.4 mg/dL (7-18); CO2 23 mmol/L (21-32); GLUCOSE,RANDOM 74 mg/dL (74-106)
[2024-01-12 12:16] LABS: CREATININE 1.3 mg/dL (0.55-1.3); SGOT/AST 18 U/L (15-37); SGPT/ALT 18 U/L (13-61)
[2024-01-12 12:18] LABS: BILIRUBIN,TOTAL 0.5 mg/dL (0.2-1); TOT PROT 7.5 g/dl (6.4-8.2)
[2024-01-12 12:19] LABS: ALK PHOS 78 U/L (45-117)
[2024-01-12] MEDS: cloNIDine HCL 0.1 MG TABLET PO PRN (15:21)
[2024-01-12 16:10] LABS: EPI CELLS 7 /uL (0-25.1); HYALINE CASTS 0 /uL (0-3.1); URINE APPEARANCE TURBID; URINE BACTERIA 2 /uL (0-1359); URINE BILIRUBIN NEGATIVE (NEGATIVE); URINE COLOR YELLOW; URINE GLUCOSE (UA) NEGATIVE (NEGATIVE); URINE KETONE TRACE (NEGATIVE); URINE LEUK ESTERASE NEGATIVE (NEGATIVE); URINE NITRITE NEGATIVE (NEGATIVE); URINE PROTEIN 1+ (NEGATIVE); URINE RBC 6 /uL (0-23.9); URINE WBC 4 /uL (0-25.8)
[2024-01-13] MEDS: ACETAMINOPHEN 325 MG TABLET (FP) PO PRN (14:09)
[2024-01-14] MEDS: IBUPROFEN 600 MG TABLET (FP) PO PRN (10:08)
[2024-01-15] MEDS: LISINOPRIL 20 MG TABLET PO SCH (15:40)
[2024-01-16] MEDS: cloNIDine HCL 0.1 MG TABLET PO PRN (06:01)
[2024-01-17] MEDS: ALBUTEROL SO4 HFA INHALER IH PRN (21:30)
[2024-01-17] MEDS: MAG HYDROX/AL HYDROX/SIMETH 30 ML UNIT-DOSE CUP PO PRN (21:30)
[2024-01-24 07:06] VITALS: RESP 18; TEMP 97.8
[2024-01-25 08:56] VITALS: BP 110/66; PULSE 86
== END 2024-01-25 10:05 | disposition home or self-care (01) | DRG 772 ==
LOC: YASAS 14:07 → Y3NR 23:13 → Y3W 01-14 13:50
PROVIDERS: ADMIT Allergy & Immunology; ATTEND Psychiatry & Neurology Pain Medicine
PROC: HZ42ZZZ Group Counseling for Substance Abuse Treatment, Cognitive-Behavioral (ICD-10-PCS; principal; 2024-01-11)
DX: F11.20 Opioid dependence, uncomplicated (principal); F14.20 Cocaine dependence, uncomplicated; F17.210 Nicotine dependence, cigarettes, uncomplicated; I10 Essential (primary) hypertension; J45.20 Mild intermittent asthma, uncomplicated; Z56.0 Unemployment, unspecified; Z59.00 Homelessness unspecified
CPT/HCPCS: 36415; 80053; 80305; 80307; 81003; 85027; 86780; 87635; 93005; 93010

== ENCOUNTER 2024-08-09 13:44 | Inpatient (IN) | payer OTHER ==
[2024-08-09 14:32] VITALS: BMI 23.5
[2024-08-09] MEDS ORDERED: ALBUTEROL SO4 HFA INHALER IH PRN (14:49)
[2024-08-09] MEDS ORDERED: NALOXONE (NARCAN) HCL 4 MG/0.1 ML SPRAY NS PRN (14:50)
[2024-08-09] MEDS ORDERED: guaiFENesin 600 MG TABLET.ER (FP) PO PRN (14:50)
[2024-08-09] MEDS ORDERED: BENZONATATE 200 MG CAPSULE PO PRN (14:50)
[2024-08-09] MEDS ORDERED: MAGNESIUM HYDROX 2400MG/30ML ORAL SUSPENSION 30 ML CUP PO PRN (14:50)
[2024-08-09] MEDS ORDERED: NALOXONE HCL 0.4 MG/ML VIAL IM PRN (14:50)
[2024-08-09] MEDS ORDERED: IBUPROFEN 400 MG TABLET (FP) PO PRN (14:50)
[2024-08-09] MEDS ORDERED: P-EPHED 60MG/TRIPROLIDI 2.5MG TABLET PO PRN (14:50)
[2024-08-09] MEDS ORDERED: ACETAMINOPHEN 325 MG TABLET (FP) PO PRN (14:50)
[2024-08-09] MEDS ORDERED: POLYETHYLENE GLYCOL (HEALTHYLAX) 3350 17 GM PACKET PO PRN (14:50)
[2024-08-09] MEDS ORDERED: IBUPROFEN 600 MG TABLET (FP) PO PRN (14:50)
[2024-08-09] MEDS ORDERED: NICOTINE POLACRILEX 2 MG GUM BUC PRN (14:50)
[2024-08-09] MEDS ORDERED: BENZOCAINE/MENTHOL (CHLORASEPTIC ) LOZENGE MM PRN (14:50)
[2024-08-09] MEDS ORDERED: LOPERAMIDE HCL 2 MG CAPSULE PO PRN (14:50)
[2024-08-09] MEDS ORDERED: NICOTINE POLACRILEX 2 MG LOZENGE BC PRN (14:50)
[2024-08-09] MEDS ORDERED: ALBUTEROL SO4 2.5/IPRATROPIUM 0.5 INH SOL 3 ML VIAL.NEB. NEB PRN (15:00)
[2024-08-09] MEDS ORDERED: ALBUTEROL SO4 2.5/IPRATROPIUM 0.5 INH SOL 3 ML VIAL.NEB. NEB ONE (15:45)
[2024-08-09] MEDS: OFLOXACIN 0.3% OPHTHALMIC SOLUTION 5 ML BOTTLE OU SCH (18:30)
[2024-08-09] MEDS: ERYTHROMYCIN 0.5% OPHTHALMIC OINTMENT 3.5 GM TUBE OU SCH (18:30)
[2024-08-09] MEDS: AMOX TR/POT CLAV 875MG/125MG TABLETS (FP) PO SCH (21:44)
[2024-08-09] MEDS: MELATONIN 5 MG TABLETS PO PRN (21:44)
[2024-08-09] MEDS: THIAMINE 100 MG TABLET PO SCH (21:44)
[2024-08-10 09:54] LABS: HEMATOCRIT 29.8 % (35.4-49); HEMOGLOBIN 9.9 GM/dL (11.7-16.9); MCH 29.4 pg (25.7-33.7); MCHC 33.1 g/dl (32.0-35.9); MEAN CELL VOLUME 88.9 fl (80-96); MEAN PLT VOLUME 8.2 fl (7.5-11.1); PLATELET COUNT 345 10^3/uL (134-434); RBC 3.35 M/mm3 (4.00-5.60); RDW 15.4 % (11.9-15.9); WHITE BLOOD COUNT 6.4 K/mm3 (4.0-10.0)
[2024-08-10 10:07] LABS: POTASSIUM 4.3 mmol/L (3.5-5.1)
[2024-08-10 10:13] LABS: ALBUMIN 2.6 g/dl (3.4-5.0); BLOOD UREA NITROGEN 27.4 mg/dL (7-18)
[2024-08-10 10:16] LABS: CREATININE 1.6 mg/dL (0.55-1.3)
[2024-08-10] MEDS: PRENATAL VITAMINS W/ FOLIC ACID TABLET (FP) PO SCH (10:16)
[2024-08-10 10:17] LABS: BILIRUBIN,TOTAL 0.2 mg/dL (0.2-1)
[2024-08-10] MEDS: amLODIPine BESYLATE 10 MG TABLET (FP) PO SCH (10:17)
[2024-08-10 10:18] LABS: TOT PROT 7.4 g/dl (6.4-8.2)
[2024-08-10] MEDS: methaDONE HCL 10 MG TABLET PO ONE (12:43)
[2024-08-10] MEDS: MAG HYDROX/AL HYDROX/SIMETH 30 ML UNIT-DOSE CUP PO PRN (12:43)
[2024-08-11 07:10] VITALS: RESP 16; TEMP 98.2
[2024-08-11] MEDS: methaDONE HCL 40 MG DISPERSABLE TABLET PO SCH (09:43)
[2024-08-11 09:54] VITALS: BP 128/86; PULSE 84
[2024-08-11] MEDS: LISINOPRIL 20 MG TABLET PO SCH (10:44)
== END 2024-08-11 11:10 | disposition left against medical advice (07) | DRG 770 ==
LOC: YASAS 13:44 → Y3E 15:51
PROVIDERS: ADMIT Allergy & Immunology; ATTEND Psychiatry & Neurology Pain Medicine
PROC: HZ42ZZZ Group Counseling for Substance Abuse Treatment, Cognitive-Behavioral (ICD-10-PCS; principal; 2024-08-09)
DX: F14.20 Cocaine dependence, uncomplicated (principal); F11.20 Opioid dependence, uncomplicated; F17.210 Nicotine dependence, cigarettes, uncomplicated; F19.24 Other psychoactive substance dependence with psychoactive substance-induced mood disorder; I10 Essential (primary) hypertension; J45.20 Mild intermittent asthma, uncomplicated; R26.89 Other abnormalities of gait and mobility; Z99.89 Dependence on other enabling machines and devices; Z96.643 Presence of artificial hip joint, bilateral; Z87.01 Personal history of pneumonia (recurrent); Z59.01 Sheltered homelessness
CPT/HCPCS: 36415; 80053; 80305; 80307; 85027; 86780; 87811